=== PATIENT | female | born 1955 | race Two or more races ===

== ENCOUNTER 2017-02-02 17:48 | Emergency (ER) | payer OTHER ==
[2017-02-02] MEDS ORDERED: HYDROmorphone* 1 MG/ML 1 ML SYR IV ONE (19:45)
[2017-02-02] MEDS ORDERED: Ketorolac INJ* 30 MG/ML 1 ML VIAL IV ONE (19:45)
[2017-02-02 19:55] LABS: Hematocrit 41 % (35-47); Hemoglobin 13.9 g/dl (12.0-16.0); Mean Corpuscular HGB Conc 34 g/dl (31-36); Mean Corpuscular Hemoglobin 32 pg (27-31); Mean Corpuscular Volume 92 fL (80-97); Mean Platelet Volume 7 um3 (7.4-10.4); Red Cell Distribution Width 14 % (10.5-15); White Blood Count 9.8 10^3/ul (3.5-10.8)
[2017-02-02] MEDS ORDERED: Ondansetron INJ* 2 MG/ML VIAL IV ONE (19:55)
[2017-02-02] MEDS ORDERED: NS 0.9% 1000 ML* 1,000 ML IV ONE (19:55)
[2017-02-02] MEDS ORDERED: Ondansetron INJ* 2 MG/ML VIAL ONE (19:57)
[2017-02-02 20:13] LABS: Albumin 4.5 g/dL (3.2-5.2); BUN/Creatinine Ratio 25.6 (8-20); C Reactive Protein 9.16 mg/L (< 5.00); Calcium 9.3 mg/dL (8.6-10.3); EGFR African American 91.5 (>60); EGFR Non-African American 71.1 (>60); Magnesium 1.9 mg/dL (1.9-2.7); Potassium 3.6 mmol/L (3.5-5.0); Total Bilirubin 0.7 mg/dL (0.2-1.0); Total Protein 7.5 g/dL (6.4-8.9)
--- NOTE | 2017-02-02 21:19 | ED ---
Abelino Del Toro Rebecca, scribed for Malu Pereira MD on 02/02/17 at 1927 . Abdominal Pain/Female - HPI Summary HPI Summary: Pt is a 61 y/o F who presents to ED c/o L flank pain. Sx began suddenly at 1730 today and have been constant since onset. Pain is currently severe, ranked 10/10 , described as "worse than labor." Sx aggravated and alleviated by nothing. Additionally c/o N/V and decreased urinary frequency. No PMHx diverticulitis and kidney stones. - History of Current Complaint Chief Complaint: EDAbdPain Stated Complaint: LT SIDE ABD PAIN,VOMITTING Time Seen by Provider: 02/02/17 19:24 Hx Obtained From: Patient Onset/Duration: Sudden Onset, Still Present Timing: Constant Severity Currently: Severe Pain Intensity: 10 Pain Scale Used: 0-10 Numeric Location: Flank - Left Aggravating Factor(s): Nothing Alleviating Factor(s): Nothing Associated Signs and Symptoms: Positive: Urinary Symptoms - Decreased urinary frequency, Nausea, Vomiting Allergies/Adverse Reactions: Allergies Allergy/AdvReac Type Severity Reaction Status Date / Time Statins Allergy Unknown Verified 02/02/17 19:02 Reaction Details Sulfa Antibiotics Allergy Unknown Verified 02/02/17 19:02 Reaction Details PMH/Surg Hx/FS Hx/Imm Hx Cardiovascular History: Reports: Hx Hypercholesterolemia, Hx Hypertension GI History: Reports: Hx Gastroesophageal Reflux Disease Denies: Hx Diverticulosis History: Denies: Hx Kidney Stones - Surgical History Surgery Procedure, Year, and Place: sinus surgery, left leg, hernia Infectious Disease History: No Infectious Disease History: Denies: Traveled Outside the [place] in Last 30 Days - Family History Known Family History: Positive: Other - No FHx kidney stones - Social History Alcohol Use: None Substance Use Type: Reports: None Smoking Status (MU): Never Smoked Tobacco Review of Systems Negative: Fever Positive: Abdominal Pain - L flank, Vomiting, Nausea Positive: frequency - Decreased urinary frequency All Other Systems Reviewed And Are Negative: Yes Physical Exam - Summary Physical Exam Summary: General: Well appearing, in moderate pain distress Skin: Warm, Skin Color Reflects Adequate Perfusion, Dry Eyes: EOMI, MAURO ENT: Pharynx normal, TMs normal Neck: Supple, nontender Respiratory: CTA, breath sounds present, no rhonchi, no wheezes, no rales Cardiovascular: RRR, no murmur, no rub, no gallop Abdomen: Soft, nontender, Non-distended, no guarding, no rebound, L flank pain but with no tenderness Bowel: Present Musculoskeletal: JESUS, No edema Neuro: Sensory/motor intact, A&Ox3, CN intact 2-12 Psych: Affect/mood appropriate Triage Information Reviewed: Yes Vital Signs On Initial Exam: Initial Vitals Temp Pulse Resp BP Pulse Ox 98.4 F 74 22 185/114 100 02/02/17 17:50 02/02/17 17:50 02/02/17 17:50 02/02/17 17:50 02/02/17 17:50 Vital Signs Reviewed: Yes - [place] Coma Scale Coma Scale Total: 15 Diagnostics - Vital Signs Vital Signs Temp Pulse Resp BP Pulse Ox 02/02/17 18:58 98.6 F 89 18 132/76 97 02/02/17 17:50 98.4 F 74 22 185/114 100 - Laboratory Lab Results: Lab Results 02/02/17 02/02/17 Range/Units 19:45 19:45 WBC 9.8 (3.5-10.8) 10^3/ul RBC 4.40 (4.0-5.4) 10^6/ul Hgb 13.9 (12.0-16.0) g/dl Hct 41 (35-47) % MCV 92 (80-97) fL MCH 32 H (27-31) pg MCHC 34 (31-36) g/dl RDW 14 (10.5-15) % Plt Count 273 (150-450) 10^3/ul MPV 7 L (7.4-10.4) um3 Sodium 133 (133-145) mmol/L Potassium 3.6 (3.5-5.0) mmol/L Chloride 101 (101-111) mmol/L Carbon Dioxide 21 L (22-32) mmol/L Anion Gap 11 (2-11) mmol/L BUN 21 (6-24) mg/dL Creatinine 0.82 (0.51-0.95) mg/dL Est GFR ( Amer) 91.5 (>60) Est GFR (Non-Af Amer) 71.1 (>60) BUN/Creatinine Ratio 25.6 H (8-20) Glucose 152 H (70-100) mg/dL Calcium 9.3 (8.6-10.3) mg/dL Magnesium 1.9 (1.9-2.7) mg/dL Total Bilirubin 0.70 (0.2-1.0) mg/dL AST 17 (13-39) U/L ALT 16 (7-52) U/L Alkaline Phosphatase 52 (34-104) U/L C-Reactive Protein 9.16 H (< 5.00) mg/L Total Protein 7.5 (6.4-8.9) g/dL Albumin 4.5 (3.2-5.2) g/dL Globulin 3.0 (2-4) g/dL Albumin/Globulin Ratio 1.5 (1-3) Lipase 72 (11.0-82.0) U/L Result Diagrams: 02/02/17 19:45 02/02/17 19:45 Lab Statement: Any lab studies that have been ordered have been reviewed, and results considered in the medical decision making process. - CT CT Abd/pel CT Interpretation Completed By: Radiologist - Pending impression, see [facility] Re-Evaluation - Re-Evaluation First Eval Re-Evaluation Time: 20:40 Change: Improved Comment: Pt is doing significantly better, sleeping comfortably. Abdominal Pain Fem Course/Dx - Course Course Of Treatment: pt signed out to dr. Molina as a possible kidney stone awaiting urine and ct read - Diagnoses Provider Diagnoses: Kidney stone Discharge - Discharge Plan Condition: Stable Disposition: OTHER Discharge Disposition Comment: Pt will be signed out, pending dispo, awaiting CT Abd/Pel Prescriptions: HYDROcodone/ACETAMIN 5-325 MG* [[place] 5-325 TAB*] 1 tab PO Q8H PRN #14 tab MDD 3 PRN Reason: Pain Tamsulosin CAP* [Flomax CAP*] 0.4 mg PO DAILY #7 cap Referrals: Norberto CLARK,Hilton Salazar [Primary Care Provider] - The documentation as recorded by the Abelino bishop Rebecca accurately reflects the service I personally performed and the decisions made by me, aMlu Pereira MD.
--- NOTE | 2017-02-02 21:21 | RAD ---
CLINICAL HISTORY: Left-sided abdominal pain and vomiting COMPARISON: None TECHNIQUE: Noncontrast CT examination of the abdomen and pelvis from the lung bases through the initial tuberosities. FINDINGS: VISUALIZED LUNG BASES: There are dependent hypoventilatory changes at the bilateral lung bases. ABDOMEN AND PELVIS: Evaluation of the solid organs and vasculature is limited without intravenous contrast. The liver, spleen, pancreas and adrenal glands are grossly normal in appearance. The gallbladder is normal. The right kidney is normal in appearance without focal mass, calcification or signs of hydronephrosis. There is moderate left-sided hydronephrosis and left perinephric stranding. There are no renal calculi visualized in either collecting system, either ureter or in the urinary bladder. Evaluation of the gastrointestinal tract is limited in the absence of oral contrast. The small and large bowel are not distended.The patient's normal appendix is identified in the right abdomen (axial image 43). There is no gross retroperitoneal or mesenteric lymphadenopathy. The pelvic viscera is normal in appearance. The abdominal aorta and iliac arteries are normal in course and diameter. Degenerative changes include multilevel loss of intervertebral disc height involving the lower thoracic and lumbar spine.There are no sinister bone lesions. IMPRESSION: There is moderate left-sided hydronephrosis and perinephric stranding without identification of any renal calculi in the collecting system, ureter or in the urinary bladder. This appearance could be due to either recent passage of a urinary calculus or pyelonephritis.
[2017-02-02 22:36] LABS: Urine Bilirubin Negative (Negative); Urine Glucose Negative (Negative); Urine Nitrite Negative (Negative)
[2017-02-02] MEDS ORDERED: oxyCODONE/Acetamin 5/325 MG* TAB PO ONE (23:10)
[2017-02-02 23:29] VITALS: BP 149/70
[2017-02-02] MEDS ORDERED: Ondansetron ODT TAB* 4 MG ONE (23:31)
== END 2017-02-02 23:27 ==
LOC: ED 17:48
DX: N20.0 Calculus of kidney (principal); R10.84 Generalized abdominal pain; R11.2 Nausea with vomiting, unspecified
CPT/HCPCS: 36415; 74176; 80053; 81003; 83690; 83735; 85027; 86140; 96374; 96375; 99283; A9270-GY; J1170; J1885; J2405